=== PATIENT | female | born 1990 | race Two or more races ===

== ENCOUNTER 2024-06-13 10:26 | Emergency (ER) | payer OTHER ==
[~2024-06-13] VITALS: Ht 157.5 cm; Wt 51.7 kg
[2024-06-13 11:19] VITALS: BP 105/68; O2SAT 100
[2024-06-14 05:10] LABS: HEPATITIS B SURFACE AB, QUAL Reactive (.); HEPATITIS B SURFACE AG Negative (Negative); HEPATITIS C VIRUS ANTIBODY Non Reactive (Non Reactive)
== END 2024-06-13 11:19 | disposition home or self-care (01) ==
LOC: ER 10:26
DX: Z77.21 Contact with and (suspected) exposure to potentially hazardous body fluids (principal); Z60.2 Problems related to living alone
CPT/HCPCS: 36415; 86706; 86803; 87340; 87536; A4606; A4663